=== PATIENT | male | born 1945 | race Caucasian/White ===

== ENCOUNTER 2020-12-09 15:24 | Outpatient (CLI) | payer SELFPAY | END 2020-12-09 15:25 | disposition critical access hospital (66) | LOC: EMS 15:24 | DX: R11.10 Vomiting, unspecified (principal); R53.1 Weakness; R42 Dizziness and giddiness | CPT/HCPCS: A0425; A0427 ==

== ENCOUNTER 2020-12-09 15:46 | Emergency (ER) | payer SELFPAY ==
[2020-12-09] MEDS ORDERED: PROCHLORPERAZINE 10 MG/2 ML VIAL IVP STA (15:53)
[2020-12-09] MEDS ORDERED: SODIUM CHLORIDE 0.9% 1,000 ML IV STA (15:53)
--- NOTE | 2020-12-09 15:56 | ED Physician Documentation ---
History of Present Illness - Stated complaint Stated Complaint: VOMITING - Additonal information Additional information: 75-year-old male Presents to the emergency department for evaluation of sudden onset nausea vomiting and dizziness. PT reports taht he felt as though the room was suddenly spinning Patient did receive his second Covid vaccine yesterday however about 1 week ago he was helping care for friend in [place] who is having similar symptoms of nausea and vomiting. Patient denies abdominal pain dysuria or flank pain. Denies chest pain or shortness of air. For EMS he was given 4 mg of Zofran without relief of the nausea and continued to dry heave in route. Past surgical history includes previous appendectomy as well as cholecystectomy. Patient denies any history of hypertension diabetes. Non-smoker. Rare EtOH use. Review of Systems Constitutional: denies: Fever, Chills Eyes: reports: Reviewed and negative Ears: reports: Reviewed and negative Nose: reports: Reviewed and negative Throat: reports: Dental pain / toothache Cardiac: reports: Reviewed and negative Respiratory: reports: Reviewed and negative GI: reports: Nausea, Vomiting. denies: Abdominal Pain, Constipation, Diarrhea, Hematemesis, Bloody / black stool : denies: Dysuria, Frequency, Hesitancy Skin: denies: Rash, Lesions Musculoskeletal: reports: Reviewed and negative Neurologic: denies: Generalized weakness, Focal weakness, Numbness, Difficulty speaking, Near syncope, Syncope, Confused, Headache, LOC Psychiatric: reports: Reviewed and negative Endocrine: reports: Reviewed and negative PD PAST MEDICAL HISTORY - Present Medications Home Medications: Ambulatory Orders Medication Instructions Recorded Confirmed Ondansetron Odt [Zofran] 4 mg TL Q6H PRN #10 tablet 12/09/20 - Allergies Allergies/Adverse Reactions: Allergies Allergy/AdvReac Type Severity Reaction Status Date / Time No Known Drug Allergies Allergy Verified 12/09/20 15:53 PD ED PE EXPANDED - General General: Alert, Other (dry heaving, nauseated) - HEENT HEENT: Atraumatic, PERRL, EOMI, Moist mucous membranes - Eyes Eyes: PERRL - Cardiac Cardiac: Regular Rate, Radial strong equal, Cap refill < 2 sec - Respiratory Respiratory: Clear to ausultation jacob. No: Distress, Labored - Abdomen Abdomen: Normal Bowel sounds. No: Tender to palpation - Extremities Extremities: Normal. No: Deformity, Tenderness - Neuro Neuro: Alert and Oriented X 3, CNII-XII intact, Normal finger nose, Normal speech. No: Nystagmus - GCS Eye Opening: Spontaneous Motor: Obeys Commands Verbal: Oriented Total: 15 Results - Vitals Vitals: Vital Signs - 24 hr 12/09/20 12/09/20 12/09/20 15:46 16:04 16:32 Temperature 36.3 C L Heart Rate 60 78 64 Respiratory 20 24 15 Rate Blood Pressure 193/99 H 186/99 H 180/88 H O2 Saturation 99 98 93 12/09/20 17:16 Temperature Heart Rate 55 L Respiratory 16 Rate Blood Pressure 172/86 H O2 Saturation 99 Oxygen O2 Source Room air - EKG (time done) 1613 Rate: Rate (enter#) (53) Rhythm: NSR, Other (multiple PVC's) [place]: Normal Intervals: Normal DE. No: Prolonged QT QRS: Poor R wave progression Ischemia: Normal ST segments Compare to prior EKG: Old EKG unavailable Computer interpretation: Agree with computer - Labs Labs: Laboratory Tests 12/09/20 12/09/20 12/09/20 16:05 16:05 16:05 WBC 10.0 RBC 5.13 Hgb 15.9 Hct 46.3 MCV 90.3 MCH 31.0 MCHC 34.3 RDW 11.6 L Plt Count 195 MPV 9.6 Neut # (Auto) 9.0 H Lymph # (Auto) 0.6 L Jack # (Auto) 0.3 Eos # (Auto) 0.0 Baso # (Auto) 0.0 Absolute Nucleated RBC 0.00 Nucleated RBC % 0.0 Sodium 143 Potassium 3.7 Chloride 106 Carbon Dioxide 27 Anion Gap 10.0 BUN 26 H Creatinine 0.9 Estimated GFR (MDRD) 82 L Glucose 162 H Lactic Acid Calcium 9.4 Total Bilirubin 0.8 AST 22 ALT 17 Alkaline Phosphatase 49 Troponin I High Sens 7.8 Total Protein 7.6 Albumin 4.6 Globulin 3.0 Albumin/Globulin Ratio 1.5 Lipase 29 Urine Color Urine Clarity Urine pH Ur Specific [place] Urine Protein Urine Glucose (UA) Urine Ketones Urine Occult Blood Urine Nitrite Urine Bilirubin Urine Urobilinogen Ur Leukocyte Esterase Urine RBC Urine WBC Ur Squamous Epith Cells Urine Bacteria Urine Casts Urine Mucus Ur Microscopic Review Urine Culture Comments 12/09/20 12/09/20 16:05 16:26 WBC RBC Hgb Hct MCV MCH MCHC RDW Plt Count MPV Neut # (Auto) Lymph # (Auto) Jack # (Auto) Eos # (Auto) Baso # (Auto) Absolute Nucleated RBC Nucleated RBC % Sodium Potassium Chloride Carbon Dioxide Anion Gap BUN Creatinine Estimated GFR (MDRD) Glucose Lactic Acid 1.9 Calcium Total Bilirubin AST ALT Alkaline Phosphatase Troponin I High Sens Total Protein Albumin Globulin Albumin/Globulin Ratio Lipase Urine Color YELLOW Urine Clarity CLEAR Urine pH 7.0 Ur Specific [place] 1.025 Urine Protein 100 H Urine Glucose (UA) 100 H Urine Ketones 15 H Urine Occult Blood TRACE-INTA Urine Nitrite NEGATIVE Urine Bilirubin NEGATIVE Urine Urobilinogen 0.2 (NORMAL) Ur Leukocyte Esterase NEGATIVE Urine RBC 0-5 Urine WBC 0-3 Ur Squamous Epith Cells RARE Squamous Urine Bacteria Rare Urine Casts 0-2 Hyaline Casts Urine Mucus Few Strands Ur Microscopic Review INDICATED Urine Culture Comments NOT INDICATED PD MEDICAL DECISION MAKING - ED course Complexity details: reviewed results, re-evaluated patient, d/w patient ED course: 75-year-old male presents the emergency department for evaluation of acute onset dizziness as well as uncontrolled nausea and vomiting. On presentation to the emergency department he had no dizziness or vertigo, However he was persistently nauseated. This gentleman had screening labs obtained including high- sensitivity troponin. Labs were unremarkable. Troponin negative. Screening EKG was nonischemic though it did show multifocal PVCs. He was given 1 L crystalloid as well as some Compazine which markedly improve the symptoms though he was still somewhat nauseated therefore I repeated 4 mg of Zofran. On reevaluation he is alert well-appearing and requesting sips of warm water. At this time the cause of the sudden onset vomiting and vertigo is not clear though I do suspect it is more peripheral in nature though I could not reproduce the symptoms here. He did have a normal cerebellar exam without any nystagmus. Patient will be discharged with a prescription for Zofran, recommendation to follow-up with primary care provider and emergent return precautions discussed. Departure - Departure Disposition: 01 Home, Self Care Clinical Impression: Vertigo Nausea and vomiting Qualifiers: Vomiting type: unspecified Vomiting Intractability: non-intractable Qualified Code(s): R11.2 - Nausea with vomiting, unspecified Condition: Stable Record reviewed to determine appropriate education?: Yes Instructions: ED Nausea Vomiting Prescriptions: Ondansetron Odt [Zofran] 4 mg TL Q6H PRN #10 tablet PRN Reason: Nausea / Vomiting Comments: Catarino you are seen in the emergency department for evaluation of nausea and vomiting. Your screening labs are essentially normal. Chest x-ray and EKG did not show any worrisome findings. It is possible that the symptoms are related to the COVID-19 vaccine you had yesterday. It is also possible that you could have a viral illness as your friend was sick with similar last week. I have prescribed a limited amount of Zofran which is a nausea medicine to be used at home the next 2 to 3 days. I do recommend that you begin frequently sipping clear liquids and slowly advance your diet as your nausea improves. If at any point you have a return of the severe symptoms, uncontrolled vomiting sudden severe headache, slurred speech or weakness in your arms or legs please return immediately to the ER for 2nd look.
[2020-12-09 16:10] LABS: BASOPHILS % (AUTO) 0.1 %; EOSINOPHILS % (AUTO) 0.3 %; HCT - HEMATOCRIT 46.3 % (42.0-52.0); HGB - HEMOGLOBIN 15.9 g/dL (14.0-18.0); LYMPHOCYTES # (AUTO) 0.6 10^3/uL (1.5-3.5); LYMPHOCYTES % (AUTO) 6.2 %; MEAN CORPUSCULAR HGB CONC 34.3 g/dL (32.0-36.0); MEAN CORPUSCULAR VOLUME 90.3 fL (80.0-94.0); MEAN PLATELET VOLUME 9.6 fL (7.4-11.4); MONOCYTES # (AUTO) 0.3 10^3/uL (0.0-1.0); MONOCYTES % (AUTO) 2.9 %; PLT - PLATELET COUNT 195 10^3/uL (130-450); RED BLOOD COUNT 5.13 10^6/uL (4.70-6.10); RED CELL DISTRIBUTION WIDTH 11.6 % (12.0-15.0)
[2020-12-09 16:28] LABS: ALBUMIN 4.6 g/dL (3.2-5.5); ALBUMIN/GLOBULIN RATIO 1.5 (1.0-2.2); BILIRUBIN,TOTAL 0.8 mg/dL (0.2-1.0); CALCIUM 9.4 mg/dL (8.5-10.3); CREATININE 0.9 mg/dL (0.6-1.2); POTASSIUM 3.7 mmol/L (3.5-5.0); TOTAL PROTEIN 7.6 g/dL (6.7-8.2)
[2020-12-09] MEDS ORDERED: ONDANSETRON 4 MG/2 ML VIAL IVP STA (16:37)
[2020-12-09 16:41] LABS: BILIRUBIN,URINE NEGATIVE (NEGATIVE); GLUCOSE, URINE (UA) 100 mg/dL (NEGATIVE); KETONES,URINE (UA) 15 mg/dL (NEGATIVE); LEUKOCYTE ESTERASE, URINE NEGATIVE (NEGATIVE); NITRITE,URINE NEGATIVE (NEGATIVE); OCCULT BLOOD,URINE TRACE-INTA (NEGATIVE); PROTEIN,URINE 100 mg/dL (NEGATIVE); UROBILINOGEN,URINE 0.2 (NORMAL) E.U./dL (NORMAL)
[2020-12-09 16:46] LABS: CLARITY,URINE CLEAR (CLEAR)
[2020-12-09] MEDS ORDERED: hydrALAZINE INJ 20 MG/ML VIAL IVP STA (16:52)
[2020-12-09 17:09] LABS: RBC,URINE 0-5 /HPF (0-5); WBC,URINE 0-3 /HPF (0-3)
[2020-12-09 17:10] LABS: BACTERIA,URINE Rare /HPF (None Seen); CASTS, URINE 0-2 Hyaline Casts /LPF; MUCUS,URINE Few Strands; SQUAMOUS EPITHELIAL CELL,UR RARE Squamous (<= Few)
[2020-12-09 18:25] VITALS: BP 165/91
== END 2020-12-09 18:39 | disposition home or self-care (01) ==
LOC: ED 15:46
DX: R42 Dizziness and giddiness (principal); R11.2 Nausea with vomiting, unspecified; I49.3 Ventricular premature depolarization
CPT/HCPCS: 36415; 80053; 81001; 81003; 83605; 83690; 84484; 85025; 87086; 93005; 96374; 96375; 99284